=== PATIENT | male | born 1965 | race Caucasian/White ===

== ENCOUNTER 2017-08-24 04:24 | Emergency (ER) | payer SELFPAY ==
[~2017-08-24] VITALS: Ht 177.8 cm; Wt 116.8 kg
[2017-08-24 05:09] LABS: BASOPHILS % 1.2 % (0.0-2.0); HEMOGLOBIN. 15.4 g/dL (14.0-18.0); LYMPHOCYTES % 16.6 % (20.0-50.0); MEAN CORPUSCULAR HEMOGLOBIN 29.8 pg (28.0-32.0); MEAN PLATELET VOLUME 9.2 fl (7.4-10.4); MONOCYTES % 6.9 % (2.0-8.0); NEUTROPHILS % 73.3 % (40.0-76.0); PLATELET 269 x1000/uL (130-400); RED BLOOD CELL COUNT 5.17 mill/uL (4.7-6.1); RED CELL DISTRIBUTION WIDTH 13.9 % (11.6-14.6)
[2017-08-24] MEDS ORDERED: ENALAPRIL 2.5MG/2ML VIAL 2ML IV ONE (05:15)
[2017-08-24 05:16] LABS: PROTHROMBIN TIME 10.7 sec (9.4-11.6)
[2017-08-24 05:26] LABS: CHLORIDE 101 mEq/L (98-107); CREATINE KINASE 263 IU/L (39-308); ETHANOL BLOOD < 10 mg/dL; TROPONIN I < 0.02 ng/mL (0.00-0.04)
[2017-08-24] MEDS ORDERED: NICARDIPINE 100 MG in SODIUM CHLORIDE 0.9% 60 ML IV ONE (05:30)
[2017-08-24] MEDS ORDERED: LABETALOL 5MG/ML SYR 20 MG/4 ML SYRINGE IV ONE (05:30)
[2017-08-24] MEDS ORDERED: LORAZEPAM 2MG/ML CPJ IV ONE ×2 (05:30)
[2017-08-24] MEDS ORDERED: LORAZEPAM 2MG/ML CPJ ONE ×2 (05:31→05:34)
[2017-08-24] MEDS ORDERED: ETOMIDATE 2MG/ML 10ML VIAL IV ONE (06:00)
[2017-08-24] MEDS ORDERED: SUCCINYLCHOLINE CHLORIDE 200MG/10ML VIAL IV ONE (06:00)
[2017-08-24] MEDS ORDERED: EPINEPHRINE 0.1MG/ML (1:10,000) 10ML SYR ONE (06:16)
[2017-08-24] MEDS ORDERED: PROPOFOL 10MG/ML 100ML 100 ML IV ONE ×2 (06:28→06:45)
[2017-08-24 06:45] VITALS: BP 220/113
[2017-08-24] MEDS ORDERED: PHENYTOIN SODIUM 1,000 MG in SODIUM CHLORIDE 0.9% 100 ML IV ONE (06:45)
[2017-08-24] MEDS ORDERED: IOHEXOL-350 100 ML BOTTLE ONE (07:10)
[2017-08-24 09:54] LABS: CLARITY URINE CLEAR (CLEAR); COLOR URINE YELLOW (YELLOW); KETONES URINE NEGATIVE (NEGATIVE); LEUKOCYTE ESTERASE URINE NEGATIVE (NEGATIVE); NITRITE URINE NEGATIVE (NEGATIVE); OCCULT BLOOD URINE TRACE (NEGATIVE); PROTEIN URINE 1+ (NEGATIVE); SPECIFIC GRAVITY URINE 1.012 (1.005-1.030); UROBILINOGEN URINE 0.2 E.U./dL (0.2-1.0)
[2017-08-24 12:22] LABS: *AMPHETAMINES SCREEN URINE NEGATIVE (NEGATIVE); *BARBITURATES SCREEN URINE NEGATIVE (NEGATIVE); *BENZODIAZEPINES SCREEN URINE NEGATIVE (NEGATIVE); *COCAINE SCREEN URINE NEGATIVE (NEGATIVE); CANNABINOID URINE SCREEN NEGATIVE (NEGATIVE); METHADONE URINE SCREEN NEGATIVE (NEGATIVE); OPIATES URINE SCREEN NEGATIVE (NEGATIVE); PHENCYCLIDINE URINE SCREEN NEGATIVE (NEGATIVE)
== END 2017-08-24 07:53 | disposition short-term general hospital (02) ==
LOC: ER 04:24
DX: R51 Headache (principal); R47.81 Slurred speech; R79.1 Abnormal coagulation profile; I10 Essential (primary) hypertension
CPT/HCPCS: 31500; 36415; 70450; 70496; 80053; 80305; 81001; 82550; 82962; 83605; 84484; 85025; 85610; 86850; 86900; 86901; 92950; 96365; 96375; 99291; G0482; J0171; J0330; J1165; J2060; J2704; J3490; Q9967; Z7610; J7050; A4315